=== PATIENT | female | born 1985 | race African-American/Black ===

== ENCOUNTER → 2021-07-05 03:55 | Outpatient (CLI) | payer OTHER, SELFPAY ==
[2021-07-05 16:54] LABS: SARS-CoV-2 RNA PCR Negative
== END ==
PROVIDERS: Visit Provider Surgery Plastic and Reconstructive Surgery
DX: Z01.812 Encounter for preprocedural laboratory examination (principal); Z20.822 Contact with and (suspected) exposure to COVID-19
CPT/HCPCS: C9803; U0003; U0005

== ENCOUNTER 2021-07-08 10:07 | Day surgery (SDC) | payer OTHER, SELFPAY ==
[2021-06-17 09:20] VITALS: BMI 17.6
--- NOTE | 2021-07-07 11:50 | P.PNAN_ITS ---
Anes - Initial Pre Proc Eval Procedure: Operation Date: 07/08/21 12:00 Proposed Procedures p Bilateral Breast Augmentation Mammoplasty - Maciej Miller MD Date/Time: 07/07/21 11:50 Surgeon: Maciej Miller MD Pre Op Diagnosis: Micromastia Patient Data Age: 35 Gender: F Height: 1.78 m Weight: 56 kg Allergies Allergy/AdvReac Type Severity Reaction Status Date / Time No Known Allergies Allergy Verified 07/08/21 10:18 Home Medications Medication Instructions Recorded Confirmed Type carisoprodol 350 mg tablet 350 mg PO TID PRN #21 tablet 06/15/21 06/17/21 Rx docusate sodium 100 mg capsule 100 mg PO DAILY #14 cap 06/15/21 06/17/21 Rx ondansetron HCl 4 mg tablet 4 mg PO Q8H #21 tablet 06/15/21 06/17/21 Rx oxycodone-acetaminophen 5 mg-325 1 tablet PO Q6H PRN #15 tablet 06/15/21 06/17/21 Rx mg tablet sumatriptan succinate [Imitrex] 50 mg PO PRN PRN 06/17/21 06/17/21 History loratadine [Claritin] 10 mg PO DAILY 07/08/21 07/08/21 History Patient hx anesthesia problems: none Family hx anesthesia problems: none Results Review: All pre-operative results and documents have been reviewed as part of the pre-operative evaluation. [facility] Past Medical History Medical History (Updated 07/07/21 @ 11:50 by Cheko Guzman DO) Chronic migraine Surgical History Surgical History Hx of appendectomy Family History Family History Father Heart attack Mother Hypertension Fibromyalgia Social History Social History Smoking status: Unknown if ever smoked Tobacco type: cigars Alcohol intake: never Drinks per week: 2 Substance use: never Substance use type: does not use Living arrangements: with family Spiritual care concerns: No Anes - Eval Final PreProcedure Day of Procedure 07/07/21 11:50 Patient weight: thin Heart: regular rate and rhythm Lungs: clear to auscultation and normal air movement Airway: Mallampati scale class II Neurological: alert and oriented Last oral intake: >/= 8 hours ASA classification: II Emergent: no Anesthetic plan: proceed Anesthesia type and monitoring: general LMA and standard monitoring Results Review: All pre-operative results and documents have been reviewed as part of the pre-operative evaluation. Informed Consent: The patient's anesthetic plan and its attendant risks and benefits were discussed with the patient/family/POA. Questions were solicited and answers provided to the satisfaction of the patient/family/POA.
[2021-07-08] VITALS (8 sets, daily range): BP systolic 101–124; BP diastolic 66–89; PULSE 54–100; RESP 10–17; TEMP 36.5–37.1; O2SAT 100; BMI 17.3
[2021-07-08] MEDS: SCOPOLAMINE 1.5 MG PATCH TRANSDERM (10:45)
[2021-07-08] MEDS: LACTATED RINGERS 1,000 ML 30 ML IV CONT ×2 (10:45→12:27)
--- NOTE | 2021-07-08 10:55 | WPDHPUPDATE1 ---
History and Physical Update Update Date/Time: 07/08/21 10:55 History and Physical has been reviewed, including an updated exam of the patient. There are NO changes in the patient's condition. Risks, benefits, and alternatives have been discussed and questions answered. Patient agrees to proceed with procedure.
[2021-07-08] MEDS: LIDO 1%/EPINEPHRINE 1:100,000 20 ML VIAL 40 ML INFILTRATE (11:04)
[2021-07-08] MEDS: BUPIVACAINE HCL 0.25% 50 ML VIAL 40 ML INFILTRATE (11:05)
--- NOTE | 2021-07-08 11:09 | W.PM.PROC2 ---
Procedure Note - Detailed Date of Procedure 07/08/21 Pre-op Diagnosis Micromastia Post-op Diagnosis same Procedure Performed Bilateral Augmentation Mammaplasty Surgeon Maciej Miller MD Anesthesia general Findings Bilateral Yuli SoftTouch 275cc Silicone Implants Right - REF# [id number] SN [id number] Left - REF# [id number] SN [id number] Description of Procedure She is here today for bilateral breast augmentation. Previously and again today the risks, benefits, alternatives were discussed in extensive detail. I wanted her to be very realistic about the risks involved as well as expectations. We discussed aftercare and what to monitor for. Made sure answered all of her questions to her satisfaction today and consent was obtained. Marked in the preoperative holding area with their verification. The patient was taken to the operating room placed supine on the operating table. Anesthesia was provided by anesthesiology. A surgical time-out was taken. We cleansed the skin and 1% lidocaine and 0.25% Marcaine with epinephrine was used anesthetize as a field block. She was prepped and draped in a standard sterile fashion. Tegaderm nipple Hirsch were placed. A 15 blade used to make an incision along the inframammary fold. Dissection was continued at 45 degree angle until the chest wall as identified. I incised the pectoralis major along its inferior border and completely released the inferior border leaving the medial border intact. I created a subpectoral pocket in the appropriate dimensions based on our preoperative planning for the implant. I then copiously irrigated with saline solution and verified a strict hemostasis. Next the use a triple antibiotic and Betadine containing solution to irrigate the pocket. I washed my gloves with the triple antibiotic and Betadine solution. We washed the implant immediately upon opening it with this solution and only opened it when we needed it. I used implant funnel and no-touch technique. The implant was introduced into the pocket using the funnel. Having verified positioning of the implant this was closed using 2-0 Vicryl followed by 3-0 Monocryl in a running subcuticular 4-0 Monocryl followed by tissue glue. Fluffs and surgical bra were placed. Patient was awoke and taken to PACU without difficulty. All instrument sponge counts were correct at the end of the case. Estimated Blood Loss 20 Drains No Packing No Pathology none sent Complications No immediate complications Condition stable Disposition PACU
[2021-07-08] MEDS: fentaNYL CITRATE INJ (*CRX) 100 MCG/2 ML VIAL 25 MCG IV PUSH ×4 (12:31→13:14)
[2021-07-08] MEDS: ONDANSETRON INJ 4 MG/2 ML VIAL IV PUSH (12:53)
[2021-07-08] MEDS: oxyCODONE HCL (*CRX) 5 MG TAB IR PO (13:43)
--- NOTE | 2021-07-08 14:04 | WPDANESPN ---
Anes - Prog Note Post-Op Date/Time: 07/08/21 14:04 Cardiovascular status: normal Respiratory status: normal Airway patency: baseline Mental status: baseline Post-Op hydration status: normal Vital Signs: Last Vital Signs Temp 36.5 C 07/08/21 13:24 Pulse 66 07/08/21 13:54 Resp 16 07/08/21 13:54 BP 117/89 07/08/21 13:54 Pulse Ox 100 07/08/21 13:54 Pain Score (VAS): 7 I/O: Intake & Output 07/07/21 07/08/21 07/08/21 23:59 07:59 15:59 Intake Total 200 Balance 200 Post-procedural complaints: none Patient Feedback: Patient satisfied with anesthetic care. Other Findings: Patient vital signs back to baseline. Patient denies nausea and vomiting. Patient's pain although rated a 7, does not appear to be uncomfortable. Patient wishes to go home. Patient OK for discharge.
== END 2021-07-08 14:20 | disposition home or self-care (01) ==
PROVIDERS: Visit Provider Surgery Plastic and Reconstructive Surgery
PROC: (CPT 19325; principal; 2021-07-08 12:00)
DX: N64.82 Hypoplasia of breast (principal)
CPT/HCPCS: 19325